=== PATIENT | female | born 1945 | race Caucasian/White ===

== ENCOUNTER → 2016-07-29 | Outpatient (CLI) | payer MEDICARE, OTHER | LOC: MAMO 02-27 10:00 | DX: Z12.31 Encounter for screening mammogram for malignant neoplasm of breast (principal) | CPT/HCPCS: G0202 ==

== ENCOUNTER 2021-05-10 16:08 | Emergency (ER) | payer MEDICARE, OTHER ==
[~2021-05-10 16:08] MED LIST: VISTARIL 25 MG25 MG PO
[2021-05-10 17:57] LABS: HEMOGLOBIN 13.3 gm/dl (12.3-15.3); RED BLOOD COUNT 4.32 M/UL (4.00-5.10); WHITE BLOOD COUNT 9.7 K/UL (4.5-11.0)
== END 2021-05-10 18:47 | disposition home or self-care (01) ==
LOC: ER1 16:08
PROVIDERS: Physician Assistant
DX: I10 Essential (primary) hypertension (principal)
CPT/HCPCS: 80048; 85025; 93005; 99283